=== PATIENT | male | born 1980 | race Caucasian/White ===

== ENCOUNTER 2017-08-26 15:03 | Emergency (ER) | payer MEDICARE, MEDICAID, SELFPAY ==
[2017-08-26 15:04] VITALS: BP 136/87; PULSE 127; RESP 16; TEMP 36.8; O2SAT 97; BMI 30.4
--- NOTE | 2017-08-26 15:19 | ED.DCSUM_ITS ---
- ER Visit Summary Date of Service: 08/26/17 Chief Complaint: Bilateral leg weakness History of Present Illness: The patient is a 37 M who has bilateral leg weakness. Started a half an hour he was walking to the grocery store. Mother states that he was walking behind her when he stated that he was having trouble walking. They were able to get to the car she had trouble getting him into the car. He denies any pain. No recent illnesses. He has not had any fevers. He has a history of falls. He does have cerebral palsy and had late childhood development. He does have a baclofen pump due to spasticity. Mom states that he has been on diet this winter because he did gain some weight. He has been eating a lot of salads and fruits Physical Examination: Vital signs reviewed. HEENT exam unremarkable. Heart is regular rate and rhythm without murmurs. Lungs are clear to auscultation. Abdomen is soft and nontender. Extremities reveal no edema. There is no tenderness of his lower extremities. Skin exam normal. Neurologic exam reveals 4 out of 5 strength of his lower extremities. Test Results: Laboratory studies unremarkable except for a bicarb of 19 and anion gap 19 Emergency Department Course and Treatment: Patient was given normal saline Treatment Plan: I feel that his anion gap is elevated due to the fact he was hyperventilating when he came in which drove down his CO2. The rest of the labs are unremarkable. I am unclear the etiology of his weakness. When I reevaluated him he stated that his legs are now tingling and that only started a couple of minutes ago. I do not feel there is anything organically going on. He was able to ambulate in the emergency department. I do not feel that this is any ascending neurologic exam such as Guillain-Tiwari?. he will continue his home medicines and will follow up with his PCP Disposition: Discharge Impression: Leg weakness This note was generated with [employer] dictation software. It may contain incorrect words, spelling, and punctuation that were not noted in review of the chart prior to signing ED Disposition - Plan for ED Patient: Chief Complaint: Weakness Referrals: Koffi Medrano [NON-STAFF] -
[2017-08-26] MEDS: 0.9% Normal Saline 1,000 ML 999 ML IV (15:21)
[2017-08-26 15:38] LABS: Absolute Lymphocyte Count 1.82 X10^3/ul (0.83-4.51); Absolute Neutrophil Count 4.2 X10^3/uL (2.0-7.7); Basophil# 0.04 X10^3/uL; Basophil% 0.6 % (0-1); Eosinophil# 0.02 X10^3/uL; Eosinophils% 0.3 % (0-5); Hematocrit 45.4 % (40-54); Hemoglobin 15.4 g/dl (13.0-16.5); Lymphocyte # 1.82 X10^3/ul (4.0); Lymphocyte % 27.8 % (19-41); Mean Corp Hgb Conc 33.9 g/gl (32-36); Mean Corpuscular Hgb 31.4 pg (27.0-32.0); Mean Corpuscular Volume 92.5 fL (80-94); Mean Platelet Vol. 9.8 fl (6.2-12.0); Monocyte# 0.46 X10^3/uL; Neutrophil # 4.19 X10^3/uL (2.7-7.7); Neutrophil % 64.1 % (47-70); Platelet Count 284 K/mm3 (150-450); RBC Distribution Width SD 46.9 fl (35.1-43.9); Red Blood Count 4.91 M/mm3 (4.6-6.2); White Blood Count 6.5 K/mm3 (4.4-11.0)
[2017-08-26 15:42] LABS: POSITIVE COUNT NO; POSITIVE DIFFERENTIAL NO; POSITIVE MORPHOLOGY NO
[2017-08-26 15:53] LABS: ALB/GLOB Ratio 1.3 RATIO (0.9-2.4); AST(SGOT) 18 U/L (15-37); Alanine Aminotransfer ALT/SGPT 31 U/L (16-61); Albumin, Serum 4.7 g/dL (3.2-5.0); Alkaline Phosphatase 156 U/L (45-117); Anion Gap 19 (5-15); BUN 8 mg/dL (7-18); BUN/Creat Ratio 7.8 RATIO (10-20); Calcium,Total 9.1 mg/dL (8.5-10.1); Chloride 106 mmol/L (98-107); Creatinine, Serum 1.03 mg/dL (0.70-1.30); EST Glomerular Filtration Rate 87 mL/min (>60); Est Glom Filt Rate - Afr Amer 106 mL/min (>60); Estimated Creatinine Clearance 74.05 ml/min; Globulin 3.7 g/dL (2.2-4.2); Glucose 79 mg/dL (74-106); Potassium 3.5 mmol/L (3.5-5.1); Protein, Total 8.4 g/dL (6.4-8.2); Sodium Level 144 mmol/L (136-145)
--- NOTE | 2017-08-26 16:18 | ED.DEP ---
ED Disposition - Plan for ED Patient: Disposition: Home or Assisted Living Chief Complaint: Weakness Instructions: ED Weakness [facility] Referrals: Koffi Medrano [NON-STAFF] -
[2017-08-26 16:22] VITALS: BP 130/88; PULSE 99; RESP 18; O2SAT 99
--- NOTE | 2017-08-26 16:28 | ED.RN ---
REVIEWED D/C INSTRUCTIONS, FOLLOW UP CARE, AND S/S THAT WOULD WARRANT A RETURN TO THE ED WITH PT. PT VERBALIZED AN UNDERSTANDING AND DENIES FURTHER QUESTIONS FOR THIS RN. PT SKIN P/W/D, RESP EVEN AND UNLABORED, PT A&O X 3, NO DISTRESS NOTED. PT AMBULATED OUT OF ED, GAIT STEADY.
== END 2017-08-26 16:30 | disposition home or self-care (01) ==
PROVIDERS: Emergency Provider Emergency Medicine; Family Provider Family Medicine; PCP Family Medicine
DX: R53.1 Weakness (principal); Z91.81 History of falling; G80.9 Cerebral palsy, unspecified; R56.9 Unspecified convulsions; Z79.899 Other long term (current) drug therapy
CPT/HCPCS: 80053; 85025; 96360; 99283; J7030; A4216